=== PATIENT | female | born 1985 | race African-American/Black ===

== ENCOUNTER → 2019-12-08 | Day surgery (SDC) | payer OTHER, SELFPAY ==
[~2019-12-08] VITALS: Ht 157.5 cm; Wt 63.5 kg
[2019-12-08 10:25] VITALS: BP 117/75
[2019-12-08 14:56] VITALS: BP 118/75
== END | disposition home or self-care (01) ==
LOC: DS 10:02 → OR 10:30 → DS 12:00
PROVIDERS: ATTEND Surgery
DX: D17.1 Benign lipomatous neoplasm of skin and subcutaneous tissue of trunk (principal); Z20.828 Contact with and (suspected) exposure to other viral communicable diseases
CPT/HCPCS: J0690; J2250; J2405; J3010; J3490; J7120; U0003